=== PATIENT | male | born 1930 | race Caucasian/White ===

== ENCOUNTER 2018-05-03 05:30 | Day surgery (SDC) | payer OTHER, BC ==
[~2018-05-03] VITALS: Ht 175.3 cm; Wt 72.6 kg
--- NOTE | ~2018-05-03 | O ---
[facility] [place] [facility] [place] [address] OPERATIVE REPORT Name: JUAN CARLOS LAWSON Room #: 150-6 [facility].#: [id number] Admission: 05/03/18 Attend Phys: Warren Teague MD Discharge: Date of : 31 Report #: [id number] THIS REPORT FOR: //name// CC: Jordan Teague DATE OF SERVICE: 05/03/2018 SURGEON: Warren Teague M.D. ATM SERVICER: None. PREOPERATIVE DIAGNOSIS: Bilateral lower lid ectropion. POSTOPERATIVE DIAGNOSIS: Bilateral lower lid ectropion. OPERATION PERFORMED: Bilateral lower lid ectropion repair. ANESTHESIA: Local with IV sedation. COMPLICATIONS: None. INDICATIONS FOR PROCEDURE: This patient has bilateral acquired lower lid ectropion with chronic tearing and discharge. The current procedures are undertaken in order to improve the patient's visual function, lacrimal outflow, and level of comfort. Informed consent was obtained to include but not limit to the risk of loss of vision, bleeding, infection, scarring, failure to improve the problem and need for further surgery. DESCRIPTION OF OPERATION: The patient was taken to the operating room where 2% Xylocaine with epinephrine mixed with equal parts of 0.75% Marcaine with Wydase was administered transcutaneously and transconjunctivally to each lower lid and lateral canthal area. The patient was then prepped and draped in the usual sterile fashion. A David clamp was then used to clamp the left lateral canthus following which a sharp canthotomy and cantholysis were performed. The tarsal strip was prepared laterally, removing the lash bearing portion of the redundant lid margin and the redundant tarsal plate. Hemostasis was achieved with a monopolar cautery, as it was throughout the case. The tarsal strip was then secured to the internal portion of the lateral orbital tubercle with two interrupted 5-0 Prolene sutures. The lateral canthal angle was sharply reformed as the subcutaneous structures and the skin were closed with multiple interrupted 6-0 plain gut sutures. [address] [address] OPERATIVE REPORT Name: JUAN CARLOS LAWSON Room #: 150-6 [facility]#: [id number] Admission: 05/03/18 Attend Phys: Warren Teague MD Discharge: Date of : 31 Report #: [id number] Attention was then turned to the right side where the same procedure was performed. The wounds were cleaned and dressed with ophthalmic antibiotic ointment. The patient was then transported to the recovery area, having tolerated the procedure well with no anesthetic or operative complications being noted. By: [id number] Warren Teague MD /nt
[~2018-05-03 05:30] MED LIST: ASPIRIN325 PO; BYSTOLIC 5 MG5 M1 PO; BYSTOLIC2.5 MG PO; C-500500 MG PO; CELEBREX 200 M200 MG PO; CENTRUM COMPLE1 EACH PO; CO Q-10200 MG PO; DONEPEZIL HCL 55 M1 PO; FISH OIL 1,001000 M2 PO; FISH OIL 1,001000 MG PO; HYDROCODON-ACE1 EAC7 OR; HYDROCODON-ACE1 EAC7 PO; HYDROCODONE-AP1 EAC6 PO; LEXAPRO 10 MG T10 M2 PO; LIVALO2 MG PO; LOVAZA1000 MG PO; MOBIC15 MG PO; OMEPRAZOLE 20 M20 M1 PO; OSTEO BI-FLEX1 EAC1; PERCOCET 5-3251 EACH; QUINU5 PD PO; ROBAXIN 750 MG750 M1 OR; SIMCOR 1,000-21 EACH PO; TRAMADOL 50 MG50 MG PO; ULTRAM 50MG TAB50 MG PO; VITAMIN D1000 UNI1 PO; VITAMIN D31000 UNI2 PO; VITAMINC500 PO; ZOCOR 20 MG TAB20 M1 OR
[2018-05-03 07:15] VITALS: BP 125/64
== END 2018-05-03 09:10 | disposition home or self-care (01) ==
LOC: OR 05:30 → TBA 05:30 → OR 09:10
DX: H02.102 Unspecified ectropion of right lower eyelid (principal); H02.105 Unspecified ectropion of left lower eyelid; I10 Essential (primary) hypertension; E11.9 Type 2 diabetes mellitus without complications; E78.5 Hyperlipidemia, unspecified; Z95.5 Presence of coronary angioplasty implant and graft; F03.90 Unspecified dementia, unspecified severity, without behavioral disturbance, psychotic disturbance, mood disturbance, and anxiety; Z95.1 Presence of aortocoronary bypass graft; Z79.01 Long term (current) use of anticoagulants; Z95.2 Presence of prosthetic heart valve; Z96.651 Presence of right artificial knee joint; Z98.890 Other specified postprocedural states; Z98.41 Cataract extraction status, right eye; Z98.42 Cataract extraction status, left eye; Z79.899 Other long term (current) drug therapy; Z85.828 Personal history of other malignant neoplasm of skin
CPT/HCPCS: 50010; 50101; 50386; 50398; 51636; 56527; 56531; 62110; 62850; 70005

== ENCOUNTER 2018-05-31 05:37 | Day surgery (SDC) | payer OTHER, BC ==
[~2018-05-31] VITALS: Ht 175.3 cm; Wt 72.6 kg
--- NOTE | ~2018-05-31 | O ---
[facility] [place] [address] OPERATIVE REPORT Name: JUAN CARLOS LAWSON Room #: 150-6 [facility]#: [id number] Admission: 05/31/18 ������������������ Attend Phys: Warren Teague MD Discharge: ������������������ Date of : 31 Report #: [id number] THIS REPORT FOR: //name// CC: Jordan Lawson MD [facility] Warren Teague DATE OF SERVICE: 05/31/2018 SURGEON: Warren Teague MD. HOT MIX OPERATOR: None. PREOPERATIVE DIAGNOSIS: Bilateral upper lid ptosis with superior visual field defects both eyes. POSTOPERATIVE DIAGNOSIS: Bilateral upper lid ptosis with superior visual field defects both eyes. OPERATION PERFORMED: Bilateral upper lid functional ptosis repair. HOT MIX OPERATOR: None. ANESTHESIA: Local with IV sedation. COMPLICATIONS: None. INDICATIONS FOR PROCEDURE: This patient has bilateral upper lid ptosis with superior visual field loss both eyes. Visual field testing demonstrates dense superior visual defects. Retesting with the upper lid elevated shows an improvement in visual field loss of over 30% and in excess of 12 degrees. The current procedure is being undertaken in order to improve the patient's visual function. Informed consent was obtained to include but not limited to the risk of loss of vision, bleeding, infection, scarring, failure to improve the problem and need for further surgery, such as adjustment of lid height. DESCRIPTION OF PROCEDURE: The patient was taken to the operating room, where 2% Xylocaine with epinephrine mixed with equal parts of 0.75% Marcaine with Wydase was administered transcutaneously to each upper lid. The patient was then prepped and draped in the usual sterile fashion. An upper lid crease incision was then made bilaterally and the dissection was [facility] [address] [place] [address] OPERATIVE REPORT Name: RENNY,JUAN CARLOS Blayne Room #: 150-6 [facility]#: [id number] Admission: 05/31/18 ������������������ Attend Phys: Warren Teague MD Discharge: ������������������ Date of : 31 Report #: [id number] carried down until the orbital septum was identified. The orbital septum was then cleared and the preaponeurotic fat identified. The levator aponeurosis was then disinserted from the anterior surface of the tarsal plate and dissected free in the avascular Phillips's muscle plane. The aponeurosis was then advanced and reattached to the anterior surface of the tarsal plate with interrupted mattress 6-0 Novafil sutures on each side, adjusting for height and contour. The redundant aponeurosis was then amputated. The incision was then closed with multiple interrupted 6-0 chromic sutures that were used to recreate an upper lid crease. The skin was closed with a running 6-0 plain gut suture. The wound was then cleaned and dressed with ophthalmic antibiotic ointment followed by a Telfa pad. The patient was transported to the recovery area, having tolerated the procedure well with no anesthesia or operative complications being noted. ��������������������������������������������� ���������������������������������������� By: ��������������������������������������������� [id number] Warren Teague MD /marissa
[~2018-05-31 05:37] MED LIST changes: +ARICEPT10 M1 PO; +COQ-10100 MG PO
[2018-05-31 08:00] VITALS: BP 134/62
== END 2018-05-31 09:51 | disposition home or self-care (01) ==
LOC: OR 05:37 → TBA 05:37 → OR 09:51
DX: H02.413 Mechanical ptosis of bilateral eyelids (principal); H53.462 Homonymous bilateral field defects, left side; H53.461 Homonymous bilateral field defects, right side; I12.9 Hypertensive chronic kidney disease with stage 1 through stage 4 chronic kidney disease, or unspecified chronic kidney disease; E11.22 Type 2 diabetes mellitus with diabetic chronic kidney disease; N18.3 Chronic kidney disease, stage 3 (moderate); M19.90 Unspecified osteoarthritis, unspecified site; E78.5 Hyperlipidemia, unspecified; F32.9 Major depressive disorder, single episode, unspecified; F03.90 Unspecified dementia, unspecified severity, without behavioral disturbance, psychotic disturbance, mood disturbance, and anxiety; Z95.1 Presence of aortocoronary bypass graft; Z95.5 Presence of coronary angioplasty implant and graft; Z98.890 Other specified postprocedural states; Z96.651 Presence of right artificial knee joint; Z85.828 Personal history of other malignant neoplasm of skin; Z98.41 Cataract extraction status, right eye; Z98.42 Cataract extraction status, left eye; Z79.899 Other long term (current) drug therapy; Z85.46 Personal history of malignant neoplasm of prostate
CPT/HCPCS: 50010; 50101; 50386; 50398; 51636; 56528; 56531; 70005

== ENCOUNTER → 2019-01-24 | Outpatient (CLI) | payer OTHER, BC | LOC: MRI 09:40 | DX: M51.26 Other intervertebral disc displacement, lumbar region (principal); M48.062 Spinal stenosis, lumbar region with neurogenic claudication; M51.27 Other intervertebral disc displacement, lumbosacral region; M43.24 Fusion of spine, thoracic region; M47.814 Spondylosis without myelopathy or radiculopathy, thoracic region; Z98.890 Other specified postprocedural states; M43.13 Spondylolisthesis, cervicothoracic region; M53.82 Other specified dorsopathies, cervical region; M25.78 Osteophyte, vertebrae; M48.02 Spinal stenosis, cervical region; M47.812 Spondylosis without myelopathy or radiculopathy, cervical region ==

== ENCOUNTER → 2019-04-03 | Outpatient (CLI) | payer OTHER, BC | END | disposition home or self-care (01) | LOC: SJCVCIMAG 10:06 | DX: I65.23 Occlusion and stenosis of bilateral carotid arteries (principal); I08.8 Other rheumatic multiple valve diseases; Z95.1 Presence of aortocoronary bypass graft; Z95.2 Presence of prosthetic heart valve ==

== ENCOUNTER → 2019-12-25 | Outpatient (CLI) | payer OTHER, BC ==
[2019-12-25 13:40] LABS: CALCIUM 9.1 mg/dL (8.5-10.1); CREATININE 1.6 mg/dL (0.7-1.3); POTASSIUM 4.3 mmol/L (3.5-5.1)
== END ==
LOC: LAB 12:40
PROVIDERS: ATTEND Internal Medicine
DX: K44.9 Diaphragmatic hernia without obstruction or gangrene (principal); Z01.812 Encounter for preprocedural laboratory examination; I72.3 Aneurysm of iliac artery

== ENCOUNTER → 2020-04-08 | Outpatient (CLI) | payer OTHER, MEDICARE | LOC: SJCVCIMAG 08:30 | PROVIDERS: ATTEND Internal Medicine | DX: I34.0 Nonrheumatic mitral (valve) insufficiency (principal); R94.31 Abnormal electrocardiogram [ECG] [EKG]; R00.1 Bradycardia, unspecified; I65.23 Occlusion and stenosis of bilateral carotid arteries; I25.10 Atherosclerotic heart disease of native coronary artery without angina pectoris; E78.5 Hyperlipidemia, unspecified; C61 Malignant neoplasm of prostate; Z95.2 Presence of prosthetic heart valve; Z79.899 Other long term (current) drug therapy; Z88.8 Allergy status to other drugs, medicaments and biological substances ==

== ENCOUNTER 2020-06-27 13:35 | Emergency (ER) | payer OTHER, MEDICARE ==
[2020-06-27 14:07] LABS: ABSOLUTE NEUTROPHILS 6.4 thou/uL (1.4-8.2); BASOPHILS 0.6 % (0.0-2.0); EOSINOPHILS 1.6 % (0.0-3.0); HEMATOCRIT 35.5 % (42.0-52.0); HEMOGLOBIN 12.3 gm/dL (14.0-18.0); LYMPHOCYTES 15.7 % (24.0-44.0); MCHC 34.6 g/dL (28.0-37.0); MCV 98.2 fL (80.0-100.0); MONOCYTES 9.3 % (1.0-8.0); PLATELET COUNT 264 thou/uL (150-400); POLYS 72.8 % (36.0-66.0); RBC 3.61 mil/uL (4.50-6.00); RDW 13.4 % (10.5-14.5); WBC 8.7 thou/uL (4.0-11.0)
[2020-06-27 14:27] LABS: ANION GAP 13 mmol/L (7-16); BUN 41 mg/dL (7-18); CALCIUM 8.8 mg/dL (8.5-10.1); CHLORIDE 103 mmol/L (98-107); CO2 23 mmol/L (21-32); CREATININE 1.8 mg/dL (0.7-1.3); GLUCOSE 160 mg/dL (74-106); POTASSIUM 4.1 mmol/L (3.5-5.1); SODIUM 139 mmol/L (136-145)
[2020-06-27 14:35] LABS: ALBUMIN 3.3 g/dL (3.4-5.0); DIRECT BILIRUBIN < 0.1 mg/dL (<0.1-0.2); LIPASE 90 U/L (73-393); SGOT 18 U/L (15-37); SGPT 26 U/L (16-63); TOTAL BILIRUBIN 0.4 mg/dL (0.2-1.0); TOTAL PROTEIN 7.3 g/dL (6.4-8.2); TROPONIN-I <0.06 ng/mL (<0.06)
[2020-06-27 14:56] VITALS: BP 161/83
--- NOTE | 2020-06-28 11:05 | EKG ---
[place] [address] [place] [address] ELECTROCARDIOGRAM REPORT Name: JUAN CARLOS LAWSON [id number] Admission: 06/27/20 Attend Phys: Discharge: 06/27/20 Date of : 31 Report #: [id number] [facility] ED Test Date: 2020-06-27 Test Time: 13:40:10 Pat Name: JUAN CARLOS LAWSON Department: Room: Gender: M Reading Specialist: [facility] : 1930 Requested By: Shaneka Llanos Order Number: [id number] MD: Vipul King Measurements Intervals [place] Rate: 80 P: -52 ID: [id number] QRS: -48 QRSD: 115 T: 99 QT: 376 QTc: 434 Interpretive Statements sinus rhythm Atrial premature complexes LVH with IVCD, LAD and secondary repol abnrm Compared to ECG 07/21/2015 07:54:58 Ectopic atrial rhythm now present Atrial premature complex(es) now present Left ventricular hypertrophy now present Early repolarization now present Sinus rhythm no longer present Left anterior fascicular block no longer present Electronically Signed On 06-28-2020 11:04:47 CDT by Vipul King [email or web address] <ELECTRONICALLY SIGNED> By: Vipul King MD 06/28/20 1104 1340 1340 Vipul King MD /EPI
== END 2020-06-27 14:59 | disposition home or self-care (01) ==
LOC: ER 13:35
PROVIDERS: Emergency Medicine
DX: R07.9 Chest pain, unspecified (principal); E78.5 Hyperlipidemia, unspecified; I12.9 Hypertensive chronic kidney disease with stage 1 through stage 4 chronic kidney disease, or unspecified chronic kidney disease; N18.30 Chronic kidney disease, stage 3 unspecified; Z95.1 Presence of aortocoronary bypass graft; Z79.899 Other long term (current) drug therapy

== ENCOUNTER → 2020-06-29 | Outpatient (CLI) | payer OTHER, MEDICARE | LOC: SJCVCIMAG 10:52 | PROVIDERS: ATTEND Internal Medicine | DX: R00.1 Bradycardia, unspecified (principal); I44.7 Left bundle-branch block, unspecified; I25.10 Atherosclerotic heart disease of native coronary artery without angina pectoris; I65.23 Occlusion and stenosis of bilateral carotid arteries; E11.22 Type 2 diabetes mellitus with diabetic chronic kidney disease; I12.9 Hypertensive chronic kidney disease with stage 1 through stage 4 chronic kidney disease, or unspecified chronic kidney disease; N18.32 Chronic kidney disease, stage 3b; Z95.1 Presence of aortocoronary bypass graft; Z95.2 Presence of prosthetic heart valve; Z79.899 Other long term (current) drug therapy; Z79.82 Long term (current) use of aspirin; Z72.89 Other problems related to lifestyle ==

== ENCOUNTER 2020-09-09 14:57 | Inpatient (IN) | payer OTHER, MEDICARE ==
[~2020-09-09] VITALS: Ht 175.3 cm; Wt 74.8 kg
[2020-09-09 15:02] VITALS: BP 139/60
[2020-09-09 17:33] LABS: HEMATOCRIT 40.9 % (42.0-52.0); HEMOGLOBIN 13.8 gm/dL (14.0-18.0); MCH 33.5 pg (26.0-34.0); MCHC 33.7 g/dL (28.0-37.0); MCV 99.3 fL (80.0-100.0); RBC 4.11 mil/uL (4.50-6.00); WBC 9.3 thou/uL (4.0-11.0)
--- NOTE | 2020-09-09 17:47 | NUR ---
1730 PATIENT NEW ADMIT BROUGHT IN DIRECT ADMIT FROM HOME, UPON ARRIVING ON UNIT PATIENT CALM COOPERATIVE. PATIENT IS HERE FOR MEMORY LOSS AND POSSIBLE DELUSIONS. PATIENT AMBULATORY WITH A WALKER PATIENT HAD RT KNEE ARTHOSCOPY DONE FEW YEARS AGO. PATIENT DENIES SI/HI/AH/VH AT PRESENT PATIENTS ABDOMEN SOFT BOWEL SOUNDS PRESENT. PATIENTS LUNGS CLEAR PATIENT HAS SOME CONFUSION PATIENTS SON STATES PATIENT THE LAST COUPLE OF MONTHS HAS NOTICED MEMORY CHANGES. PATIENT WAS A DENTIST AND PRACTICED UNTIL ABOUT 1-2 YEARS AGO PATIENT DOES HAVE SEVERAL MEDICAL ISSUES. PATIENT HAS A HISTORY OF DIABETES TYPE TWO DOES TAKE A MEDICATION WE DON'T CARRY. PATIENTS SON STATES HIS DIABETES HAS NOT BEEN A PROBLEM FOR PATIENT. PATIENT HAS BEEN WORKED UP BY A OUTSIDE NEUROLOGIST AND INTERNAL MEDICINE DOCTORS. PATIENTS SON WOULD LIKE DR PENN TO WORK PATIENT UP TO SEE IF HE HAS DEMENTIA OR ALZHEMIERS. WILL CONTINUE TO MONITOR PATIENT FOR SAFETY AND BEHAVIORS.
[2020-09-09 17:59] LABS: ALBUMIN 3.7 g/dL (3.4-5.0); CREATININE 1.8 mg/dL (0.7-1.3); MAGNESIUM 2.4 mg/dL (1.8-2.4); POTASSIUM 4.3 mmol/L (3.5-5.1); TOTAL BILIRUBIN 0.3 mg/dL (0.2-1.0); TOTAL PROTEIN 7.7 g/dL (6.4-8.2)
[2020-09-09 18:44] LABS: CHOLESTEROL 283 mg/dL (<200); HDL CHOLESTEROL 54 mg/dL (>40); LDL CHOLESTEROL 187 mg/dL (<100); TC:HDL 5.2 Ratio (Not establshd); TRIGLYCERIDE 213 mg/dL (<150); VLDL 43 mg/dL (<40)
[2020-09-09 18:54] LABS: FOLIC ACID 40.7 ng/mL (8.6-58.9)
[2020-09-09 19:54] VITALS: BP 125/63
[2020-09-10 11:39] VITALS: BP 143/83
--- NOTE | 2020-09-10 13:11 | NUR ---
New admit to [facility] for unspecified disturbance, memory changes. Hx DM, CABG, HTN, HLD. Visited during day room-pt reports good appetite, no significant wt changes. B12 575, Vitamin D 36, folate wnl, A1C 8%, and lipids elevated. On B12, mvi, vitamin D supplementation. New orders for ss insulin. Low nutrition risk.
[2020-09-10 19:51] VITALS: BP 162/74
--- NOTE | 2020-09-10 20:36 | NUR ---
0700 ASSUMED CARE OF PATIENT. PATIENT CALM AND COOPERATIVE. LS CLEAR, BS ACTIVE, ABD SOFT. NO C/O PAIN. MDICATIONS TAKEN WHOLE WITHOUT DIFFICULTY. AMB WITH WALKER. PATIENT CONFUSED AT TIMES. A&O X3 . HGB A1C 8 AND LIPIDS ELEVATED. HOSPITALIST NOTIFIED. PATIENT IS PLEASANT AND ISOLATES IN ROOM AFTER MEALS.
[2020-09-10 21:00] VITALS: BP 162/74
--- NOTE | 2020-09-10 23:02 | H ---
[facility] [place] [address] HISTORY AND PHYSICAL Name: JONAH LAWSON Room #: 525B-B ADM IN M.R.#: [id number] Admission: 09/09/20 Attend Phys: Vu Pardo DO Discharge: Date of : 31 Report #: [id number] THIS REPORT FOR: cc: Jordan Barrera MD, Bernard O. MD Kerstein, Andrew H. DO ~ DOC #: [id number] VU Pardo DO DATE OF SERVICE: 09/10/2020 INPATIENT PSYCHIATRIC EVALUATION ATTENDING PSYCHIATRIST: Vu Pardo DO. BOBBIN SORTER: Scot Benson MD SOURCES OF INFORMATION: Interview with the patient, collateral from his son, Dr. Jonah Lawson. Records from the chart review. CHIEF COMPLAINT: Unspecified. HISTORY OF PRESENT ILLNESS: This is an 89-year-old male living in the community with his . Unfortunately, the patient has developed 3 months of behavioral difficulties including impulsiveness, agitation, waking up very early in the morning, late in the night, banging on the table, uncharacteristic cursing. The patient in the last 3 months or so had a neuropsychological evaluation with Dr. Ryan Sanders in [place], [place]. I have not had the opportunity to review the report, but the son, Dr. Jonah Lawson reports that it showed major neurocognitive disorder, likely of Alzheimer's nature. The patient has had a complicated history, is about 7 or 8 years ago, Dr. 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 Of particular note, MRI noncontrast of the brain was done this morning and compared to one done in 2016 here at [facility], which showed roughly similar amount of ventricular dilatation. There is more atrophy than was present. This is a subjective call and in my opinion, there has been somewhat more atrophy during the interval when comparing the 2 MRIs on sagittal views than would be expected if the normal pressure hydrocephalus have been treated correctly. I have no doubt that the SERVICE TECHNICIAN COPIER shunt is functioning or well placed. However, what I mean by my previous statement should be clarified that I think a secondary process such as Alzheimer disease has unfortunately taken place. In any event, the patient is a suboptimal historian, does not have any particular complaints. Denies depression, anxiety, suicidal ideation, homicidal ideation, flashbacks, nightmares, etc. Background information from the son, Dr. Mckenzie includes his father early in life, was a smoker. His mother lived to age 88. The patient's brother who is 8 years older than him of a stroke and heart [facility] [address] [place] [address] HISTORY AND PHYSICAL Name: JONAH LAWSON Blayne Room #: 525B-B ADM IN M.R.#: [id number] Admission: 09/09/20 Attend Phys: Vu Pardo DO Discharge: Date of : 31 Report #: [id number] attack around 20 years ago. The patient is in [place] of [place] descent, born and raised in [facility] in dental school. 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 Jonah Lawson. He is Jews with [employer] arnold. Big baseball fan. Workup in the [facility] showed an H and H of 13.8 and 40.9, white count 9.3, platelet count 276. Chemistries showed sodium 141, potassium 4.3, chloride 105, bicarbonate 24, BUN 39, creatinine 1.8, estimated GFR of 36, point of care glucose 180 yesterday, today 140. Hemoglobin A1c 8.0, calcium 9.0, magnesium 2.4, total bilirubin 0.3, direct bilirubin less than 0.1, AST 18, ALT 25, alkaline phosphatase 121. Troponin less than 0.06, total protein 7.7, albumin 3.7. Triglyceride showed 213, slightly high; cholesterol 283, LDL 187, HDL 54. Lipase 90. Vitamin B12 of 575. Vitamin D 36.1. Folate 40.7. TSH 1.705. Urinalysis showed trace blood, otherwise negative. COVID-19 serology was negative. I did go ahead and order syphilis antibody to complete the workup on this patient for reversible causes of dementia. Although the patient was a practicing dentist, he has been retired since the age of 83, so I think it is unlikely there is HIV in his case. PHYSICAL EXAMINATION: VITAL SIGNS: Today, temperature 35.3, pulse 73, respirations 18, BP 143/83, O2 sat 98%. BMI 24.4, weight 74.843 kilos, height 175.26 cm. GENERAL: He is using a rolling walker to ambulate. He is kyphotic. Wearing yellow [employer] shirt. MENTAL STATUS EXAMINATION: This is a well-developed, age-appearing male, wearing the jewelry of [employer], has a necklace charm. Attention fair. Concentration limited. Speech normal rate, volume, and tone. Thought process - linear and goal directed. Thought content - relative poverty of thought. No psychomotor agitation, no psychomotor retardation. Mood and affect okay, congruent, euthymic. Denied suicidal or homicidal ideation. Denies auditory, visual, or tactile hallucinations. Denied flashbacks, nightmares. Memory not formally tested today - noted to be impaired. Insight limited. Judgment limited. Fund of knowledge below premorbid baseline. PAST SURGICAL HISTORY: Aortic stenosis, coronary artery disease, joint disease, GERD, dyslipidemia with his medical and surgical history of hyperlipidemia, hypertension, diabetes mellitus, 2 total knee arthroplasties, hernia repair, rotator cuff repair, ventriculoperitoneal shunt, history of skin cancer. REVIEW OF SYSTEMS: Hospitalist completed a 12-point review of systems and negative except for what was in HPI. Some additional details. He denied lightheadedness, dizziness, chest pain, shortness of breath, nausea, vomiting, constipation, diarrhea, numbness, tingling, weakness. No rashes, no lumps or bumps to the hospitalist. The patient did admit to being more forgetful to the hospitalist. ELISA inhibitors has been on hold as his creatinine has increased. 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 Hospice ordered B12, folate, TSH, vitamin D all normal. Syphilis antibody pending. MRI is completed. History of coronary artery disease, hypertension, CKD stage III, diabetes mellitus type 2. Family brought in Jardiance which I ordered 10 mg oral daily, hyperlipidemia. Hospitalist is planning a low dose statins. MEDICATIONS: Currently in the hospital, cyanocobalamin 500 mcg oral daily. We started Depakote, which he will be receiving 750 mg p.o. at bedtime for insulin control. Seroquel, I changed and increased to 37.5 mg oral 3 times a day, Bystolic 2.5 mg oral daily, pantoprazole 40 mg p.o. daily, multivitamin oral daily. He had a home medication of duloxetine, which I will continue that for now 60 mg oral daily, cholecalciferol 2000 international units daily, aspirin 81 mg oral daily, levothyroxine 25 mcg daily. Home medication of memantine 10 mg p.o. b.i.d., donepezil 10 mg p.o. at bedtime, looks like the rest are house PRNs. PLAN: Admitted voluntarily to the Geriatric-Psychiatry unit here at [facility]. Evaluate stabilize. Hospitalist is consulted. I met with the patient and his son, Dr. Jonah Lawson, discussed the role of Seroquel and Depakote for both antipsychotic reasons and impulse control reasons. We have a family meeting scheduled 12:30 tomorrow, we will discuss things further. Time spent on this case, greater than 60 minutes, greater than 50% of time was spent in reviewing records and coordination of care. STRENGTHS: Very supportive family. WEAKNESSES: Advanced age, neurodegenerative disorder. VU Pardo DO AHK/ARABELLAA <ELECTRONICALLY SIGNED> By: Vu Pardo DO 09/10/20 [id number] 1843 Vu Pardo, DO /nt
--- NOTE | 2020-09-11 00:48 | NUR ---
Late entry d/t computer down time. Assumed care on 09/09/20 @ 19:00, A&Ox4, calm cooperative with care. Flat affect noted. Ambulates with walker, Bonilla score 50, high fall risk. Respirations even and unlabored, breath sounds CTA bilat, ABD N x 4Q. Stayed in bed during snack time, provided applesauce for a snack. Compliant with medications, taking meds whole with water. Rounding as per unit protocol, bed in low position, bed alarm set.
--- NOTE | 2020-09-11 02:18 | NUR ---
PT CARE WAS RESUMED AT 1900. HE IS IN HIS ROOM. ALERT AND ORIENTED. ABLE TO VERBALIZE HIS NEEDS. LUNGS ARE CLEAR, BS ACTIVE, HE IS CONTINENT OF B/B. HE DENIES AVH/SI/HI AND PAINS. TOOK HIS MEDS WHOLE AND HE IS CALM AND NO SIGN OF DISCOMFORT NOTED. BED IS LOW, ALARMED, LOCKED AND YELLOW SOCKS AND TOP ARE WORN.
[2020-09-11 10:34] VITALS: BP 160/76
--- NOTE | 2020-09-11 11:49 | NUR ---
0700 ASSUMED CARE OF PATIENT, PATIENT IN BED AT THAT TIME. PATIENT AMB WITH STEADY GAIT USING WALKER. NO C/O PAIN. DENIES NEEDS.
[2020-09-11 19:56] VITALS: BP 113/54
[2020-09-11 21:06] LABS: SYPHILIS AB Non Reactive (Non Reactive)
--- NOTE | 2020-09-12 05:59 | NUR ---
Assumed pt's care beginning of this pm shift. ALert and oriented x3. Pt was calm and cooperative with care. Conversational. Verbalized to nursing " I used to be in charge of everything but not anymore. I ran [employer]". Nursing listened to pt talk about his practice. Pt seemed excited talking about his job. Pt took meds per emar. Insulin coverage at HS. Pt slept well. Forgets occassionally to use home walker. Reinforcement provided as needed. Nursing to continue to monitor.
[2020-09-12 09:47] VITALS: BP 153/83
--- NOTE | 2020-09-12 12:57 | NUR ---
PATIENT WAS IN BED ASLEEP WHEN CARE ASSUMED, WOKEN UP FOR BREAKFAST, HE AMBULATE WITH ASSIST OF HOME WALKER. PATIENT TOOK ALL MORNING MEDICATION WHOLE WITHOUT DIFFICULTY, HE IS EATING MEALS, AND DRINKING FLUID WELL. PATIENT DENIES SUICIDAL/HOMICIDAL IDEATION, HE DENIES DEPRESSION, "AM ANXIOUS BECAUSE I WANT TO GET OUT OF HERE". PATIENT DENIES HAVING PHYSICAL PAIN. AFFECT IS BRIGHT, MOOD IS EUTHYMIC. NO AGITATION OR AGGRESSIVE BEHAVIOR NOTED. PATIENT IS CALM, COOPERATIVE WITH CARE. NO S&S HYPER/HYPOGLYCEMIA NOTED, NO INSULIN REQUIRED AT THIS TIME, BLOOD SUGAR BEFORE BREAKFAST 94, BEFORE LUNCH, BLOOD SUGAR 149. NO SIGN OF OF ACUTE DISTRESS NOTED AT THIS TIME, WILL MONITOR FOR SAFETY.
[2020-09-12 19:21] VITALS: BP 134/66
--- NOTE | 2020-09-13 00:17 | NUR ---
PATIENT LYING IN BED, NO S/S OF DISTRESS OR DISCOMFORT. TOOK HS MEDS WHOLE WITHOUT DIFFICULTY. A&OX3, PLEASANT AND COOPERATIVE. USES WALKER FOR AMBULATION. DENIES PAIN. WILL CONTINUE TO MONITOR.
[2020-09-13 08:53] VITALS: BP 147/70
--- NOTE | 2020-09-13 14:57 | NUR ---
PATIENT ALERT AND AWAKE AT CHANGE OF SHIFT. ANSWERS QUESTIONS WITHOUT HESITATION. FORGETFUL BUT AGREEABLE. STATED SLEPT WELL LAST EVENING - COMPLIANT WITH MEDICATIONS. DENIES S/I OR H/I - GOOD APPETITE - COMPLETION OF MEALS - AFFECT BRIGHT AND MOOD PLEASANT AND RESPONSIVE TO STAFF AND PEERS. MAKES NEEDS KNOWN READILY. TALKED ABOUT DENTISTRY PRACTICE HE HAD IN [place]. ADMITTED WAS NOT SURE WHY HE WAS HERE. NO PAIN WHEN ASSESSED OR ANY DISCOMFORT.
[2020-09-13 19:15] VITALS: BP 153/74
--- NOTE | 2020-09-13 21:14 | NUR ---
PATIENT SITTING IN BED, NO S/S OF DISTRESS OR DISCOMFORT. A&OX3, UNSURE OF REASON FOR BEING HERE. PLEASANT AND COOPERATIVE, DENIES ANY PAIN, SI, HI, AVH. BRIGHT AFFECT, AMICABLE WITH STAFF. NO AGITATION OR IRRITABILITY OBSERVED. AMBULATES WITH OWN WALKER WITHOUT DIFFICULTY, STEADY GAIT. WILL CONTINUE TO MONITOR.
--- NOTE | 2020-09-13 22:09 | NUR ---
PATIENT HAS BEEN MORE ACTIVE THIS EVENING, RUNNING TOWARDS EXIT WHEN STAFF ARE DEALING WITH OTHER PATIENTS/DUTIES. HE HAS BEEN PUSHING THE DOOR CHEUNG AT THE EXIT AND BECOMING AGITATED/AGGRESSIVE WHEN STAFF HAS REDIRECTED HIM. HE ATTEMPTED TO PUT MALE THEATRE ARTS PROFESSOR IN HEADLOCK. NOTIFIED DIRECTOR OF OPERATIONS VP [employer] AND [employer], RECEIVED TELEPHONE ORDER FOR GEODON 10MG IM ONE TIME, READ BACK. IN THE MEANTIME, PATIENT BECAME CALM AND RECLINED BACK IN PEMA CHAIR AND IS CURRENTLY ASLEEP. HOLDING OFF ON GIVING IM MEDICATION, PATIENT IS NO LONGER EXHIBITING AGITATION/AGGRESSIVENESS. WILL MONITOR.
[2020-09-14 08:39] VITALS: BP 188/75
--- NOTE | 2020-09-14 13:29 | NUR ---
ARABELLA contacted Dr. Ortega's office at [phone] to schedule an appt. ARABELLA was redirected to the import/export specialist's vm. ARABELLA left a message. SW team will continue to follow pt during his stay on this unit.
[2020-09-14] MEDS ORDERED: DEPAKOTE ER250 MG PO (15:03)
[2020-09-14] MEDS ORDERED: PROTONIX40 M4 PO (15:04)
[2020-09-14] MEDS ORDERED: BAYER CHEWABLE81 MG PO (15:05)
[2020-09-14] MEDS ORDERED: CYMBALTA20 MG PO (15:06)
[2020-09-14] MEDS ORDERED: SEROQUEL 50 MG50 MG PO (15:07)
[2020-09-14] MEDS ORDERED: NAMENDA 5 MG TAB5 M1 PO (15:07)
[2020-09-14] MEDS ORDERED: SYNTHROID25 MC1 PO (15:09)
[2020-09-14] MEDS ORDERED: HOME MEDICATION PO (15:09)
[2020-09-14 15:48] VITALS: BP 188/75
--- NOTE | 2020-09-14 18:25 | NUR ---
DISCHARGE INSTRUCTIONS REVIEWED WITH PT SON PIERRE JUAN CARLOS TSAIO INCLUDING DC MEDICATIONS DOSING AND TIME-F/U RECOMMENDATIONS AND WHEN TO SEEK EMERGENCY ASSISTANCE. PT AND SON DENY ANY CURRENT QUESTIONS/CONCERNS. PERSONAL BELONGINGS SECURED AND SENT WITH PT AND MED BROUGHT IN FROM HOME SECURED AND SENT HOME WITH SON-PERSONAL WALKER AND SHAVER SENT. PT UP IN MOOD AT TIME OF DC-SMILING AND JOKING WITH STAFF. DENIES SI/SH/HI. DENIES ACUTE ANXIETY. NO NOTED OR REPORTED PSYCHOSIS.DC VIA WC ACCOMPNIED BY NURSING STAFF AND SON TO PRIVATE VEHICLE.
--- NOTE | 2020-09-15 23:28 | D ---
[facility] [place] [address] DISCHARGE SUMMARY Name: JONAH LWASON Room #: [facility] M.R.#: [id number] Admission: 09/09/20 Attend Phys: Vu Pardo DO Discharge: 09/14/20 Date of : 32 Report #: [id number] THIS REPORT FOR: cc: Jordan Barrera MD, Bernard O. MD Kerstein, Andrew H. DO ~ DOC #: [id number] VU Pardo DO DATE OF SERVICE: 09/14/2020 PSYCHIATRIC DISCHARGE SUMMARY ATTENDING PSYCHIATRIST: Vu Pardo DO. REFRIGERATOR GLAZIER: Scot Benson MD DISCHARGE DIAGNOSES: As follows: Major neurocognitive disorder due to multiple etiologies including Alzheimer's disease, highly suspected as well as diagnosed and treated with SILVICULTURIST shunt, normal pressure hydrocephalus with behavioral disturbance, improved. Unspecified psychosis, resolved. 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 Medical comorbidities include coronary artery disease, hypertension, diabetes mellitus type 2, hemoglobin A1c of 8, CKD stage III, hypothyroidism. DISCHARGE PLAN: The patient is being discharged to his home, 24-hour care is highly recommended. His DPOA, Dr. Jonah Lawson is aware of this. DIET: 1800 calorie diabetic diet. ACTIVITY LEVEL: As tolerated. Absolutely no driving, no recreational drugs, no smoking. Would recommend against alcohol given his dementia. DISCHARGE MEDICATIONS: The patient's meds were e-scribed to the [facility] at [address] and [address]. He has continued to take lisinopril 5 mg oral daily, folic acid, multivitamin with iron, Centrum Complete 1 tab each daily; nebivolol, which is Bystolic 5 mg oral daily, vitamin C 500 mg oral daily; pitavastatin, which is Livalo 10 mg oral daily; cholecalciferol 1000 International Units oral daily; fish oil 1000 mg oral daily, CoQ 100 mg oral daily, donepezil 10 mg oral daily. He is to start taking aspirin 81 mg daily for heart protection, duloxetine 60 mg oral daily for history of depression, Seroquel 50 mg oral 3 times a day at 0900, 1500, 2100 hours for psychosis. Memantine 10 mg oral twice daily for cognitive enhancement. Levothyroxine 25 mcg oral daily for thyroid replacement. Depakote ER 750 mg oral at bedtime for mood stabilization. Pantoprazole 40 mg oral daily at 0700 hours for GERD. Scripts were sent in for the aspirin, duloxetine, Seroquel, memantine, levothyroxine, Depakote and pantoprazole. The patient's aftercare, his PCP is Dr. Tobias, [address] [address] DISCHARGE SUMMARY Name: JONAH LAWSON Room #: [facility] M.R.#: [id number] Admission: 09/09/20 Attend Phys: Vu Pardo DO Discharge: 09/14/20 Date of : 32 Report #: [id number] he should see in one month. Also attempts were made to get him an appointment with Dr. Tafoya, unfortunately it turns out he only sees children, did not have enough time to get him on replacement appointment. I took care to give his son, Anisha Jonah Lawson 2 options, Dr. Lui Montemayor in [facility] and also Dr. Maya Dyer who sees patients in the [facility] as she will be resuming seeing outpatients in October. In the interval, the patient's son is aware that I will be happy to be a resource including more time as needed until he can get in with an outpatient psychiatrist prescribing medication. CONDITION AT DISCHARGE: Stable. No SI, no HI. LABORATORY DATA: Significant laboratories this admission include Hematology: Hemoglobin and hematocrit 13.8 and 40.0. White count 9.3, platelets 276. Chemistries this admission include sodium 141, potassium 4.3, chloride 105, bicarbonate 24, anion gap 12, BUN 39, creatinine 1.8, estimated GFR 36, glucose 180. Estimated average glucose 183. Hemoglobin A1c 8.0, calcium 9.0, magnesium 2.4, total bilirubin 0.3, AST 18, ALT 25, alkaline phosphatase 121. Troponin less than 0.06, total protein 7.7, albumin 3.7. Triglycerides 213. Cholesterol 283, LDL 187, HDL 54. B12 of 575. Vitamin D 36.1. Folate 40.7. TSH 1.705. DIAGNOSTIC DATA: MRI of the brain was done this admission, which showed several things, right occipital ventriculostomy catheter in place, ventriculomegaly appears similar to previous MRI from 2016. It should be noted, subjectively, there was a peripheral atrophy shrinkage of the brain tissue greater than I would expect for a 6-year interval MRI; however, these are my personal observations, not necessarily out of the radiologist's this finding in a patient of 89 years of age with an approximately the same size ventriculomegaly. This is suggestive of an Alzheimer's process on top of any normal pressure hydrocephalus. As stated, diabetic 1800 calorie diet and activity restrictions including diet. REASON FOR ADMISSION: Back on 09/09/2020 as follows, 89-year-old male, community dwelling, living with his , 3-month history of increasing behavioral problems including impulsivity, agitation, waking up early in the morning, disturbing his , banging on the table, cursing. The patient's son is a physician at [employer] and that was a direct admit. HOSPITAL COURSE: The patient was admitted to Geriatric Psychiatry unit. The patient had following behaviors throughout. Only exceptions may be some initial avoidance of going to therapeutic groups. We had a family meeting, I believe it was 09/11/2020, discussed his situation and need for 24-hour care and supervision. The family did not want to place so will be cared at home. It was emphasized the patient should not drive or operate dangerous equipment or devices. They were in agreement. [facility] [address] [place] [address] DISCHARGE SUMMARY Name: JONAH LAWSON Room #: [facility].#: [id number] Admission: 09/09/20 Attend Phys: Vu Pardo, Discharge: 09/14/20 Date of : 32 Report #: [id number] CONDITION AT DISCHARGE: Stable. PHYSICAL EXAMINATION: VITAL SIGNS: Temperature 36.3, pulse 52, respirations 16, BP 188/75 at time of discharge, O2 sat 99%. MUSCULOSKELETAL: Assisted gait with rolling walker. MENTAL STATUS EXAMINATION: This is a well-developed, age appearing male. Attention, concentration fair. Speech normal rate, volume and tone. Thought process, linear and goal directed. Thought content, focused on discharge. No SI, no HI. No auditory, visual, or tactile hallucinations. Mood and affect is congruent, euthymic, "good for range." Denied SI, HI. Denied auditory, visual, or tactile hallucinations. Memory not formally tested, known to be impaired. Insight limited. Judgment fair to limited. Fund of knowledge probably still at least average. He had prior morbid high level of intelligence. Prognosis on this patient is guarded given having a neurodegenerative disorder at age of 89. Medical Comorbidities including CKD stage III, suboptimally controlled diabetes mellitus and variably controlled hypertension. VU Pardo DO AHK/SWA/ANI <ELECTRONICALLY SIGNED> By: Vu Pardo DO 09/15/20 [id number] Vu Pardo DO /nt
== END 2020-09-14 17:01 | disposition home or self-care (01) | DRG 57 ==
LOC: SBH 14:57
PROVIDERS: Internal Medicine; ADMIT Psychiatry & Neurology Psychiatry; ATTEND Psychiatry & Neurology Psychiatry
DX: G30.9 Alzheimer's disease, unspecified (principal); F01.51 Vascular dementia, unspecified severity, with behavioral disturbance; N18.30 Chronic kidney disease, stage 3 unspecified; F02.81 Dementia in other diseases classified elsewhere, unspecified severity, with behavioral disturbance; I25.10 Atherosclerotic heart disease of native coronary artery without angina pectoris; I12.9 Hypertensive chronic kidney disease with stage 1 through stage 4 chronic kidney disease, or unspecified chronic kidney disease; E11.22 Type 2 diabetes mellitus with diabetic chronic kidney disease; E03.9 Hypothyroidism, unspecified; F32.9 Major depressive disorder, single episode, unspecified; K21.9 Gastro-esophageal reflux disease without esophagitis; E78.5 Hyperlipidemia, unspecified; Z20.822 Contact with and (suspected) exposure to COVID-19; Z98.2 Presence of cerebrospinal fluid drainage device; Z79.899 Other long term (current) drug therapy; Z79.82 Long term (current) use of aspirin; Z95.1 Presence of aortocoronary bypass graft
CPT/HCPCS: 10880

== ENCOUNTER → 2020-10-14 | Outpatient (CLI) | payer OTHER, MEDICARE ==
[~2020-10-14] MED LIST changes: +BAYER CHEWABLE81 MG PO; +CYMBALTA20 MG PO; +DEPAKOTE ER250 MG PO; +HOME MEDICATION PO; +NAMENDA 5 MG TAB5 M1 PO; +PROTONIX40 M4 PO; +SEROQUEL 50 MG50 MG PO; +SYNTHROID25 MC1 PO
== END ==
LOC: NUC 09:35
PROVIDERS: ATTEND Neuromusculoskeletal Medicine & OMM
DX: M81.0 Age-related osteoporosis without current pathological fracture (principal); M40.294 Other kyphosis, thoracic region

== ENCOUNTER → 2020-12-21 | Outpatient (CLI) | payer OTHER, MEDICARE | LOC: SJCVC 11:03 | PROVIDERS: ATTEND Internal Medicine | DX: R94.31 Abnormal electrocardiogram [ECG] [EKG] (principal); I25.10 Atherosclerotic heart disease of native coronary artery without angina pectoris; I65.23 Occlusion and stenosis of bilateral carotid arteries; E78.5 Hyperlipidemia, unspecified; R00.1 Bradycardia, unspecified; E11.22 Type 2 diabetes mellitus with diabetic chronic kidney disease; N18.32 Chronic kidney disease, stage 3b; G30.1 Alzheimer's disease with late onset; F02.80 Dementia in other diseases classified elsewhere, unspecified severity, without behavioral disturbance, psychotic disturbance, mood disturbance, and anxiety; Z95.2 Presence of prosthetic heart valve; Z95.1 Presence of aortocoronary bypass graft; Z79.82 Long term (current) use of aspirin; Z72.89 Other problems related to lifestyle ==